=== PATIENT | male | born 1965 | race Caucasian/White ===

== ENCOUNTER → 2018-09-03 | Outpatient (CLI) | payer OTHER ==
--- NOTE | 2018-09-03 09:54 | KCIC ---
EXAM: Bilateral hips and pelvis, 5 views. HISTORY: Pain. COMPARISON: None. FINDINGS: A frontal view the pelvis and frontal and frog-leg views of both hips are obtained. There is no fracture, dislocation or subluxation. There is minimal right and mild left marginal femoral femoral head spurring. There is a corticated ossicle along the superior lateral left acetabulum likely due to a chronic fragmented osteophyte. There may be superimposed small os acetabulum. There is degenerative change at the lumbosacral junction. IMPRESSION: 1. 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 2. No acute osseous finding. Electronically signed by: Anna Brewster MD (09/03/2018 9:51 AM) [id number]
== END | disposition home or self-care (01) ==
LOC: KCIC 08:59
PROVIDERS: ATTEND Nurse Practitioner Family
DX: M17.0 Bilateral primary osteoarthritis of knee (principal); M25.752 Osteophyte, left hip; G89.29 Other chronic pain
CPT/HCPCS: 73521

== ENCOUNTER → 2021-08-14 | Outpatient (CLI) | payer MEDICARE ==
[~2021-08-14] MED LIST: GADOTERATE 5 MMOL/10ML VIAL. IVP ONE; LITH150C PO; LORA2DIS2 IJ; ZOLP5TAB PO
--- NOTE | 2021-08-15 11:20 | KCIC ---
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 TECHNIQUE: Unenhanced T1-weighted sagittal and FLAIR and diffusion-weighted axial images of the brain were obtained. Thin section T1-weighted axial and coronal, T2-weighted coronal and fat saturated T2- weighted coronal images through the orbits were obtained. After the intravenous administration of 20 cc of Clariscan enhanced T1-weighted axial images of the brain were obtained. Additionally enhanced t hin section fat saturated T1-weighted axial and coronal images through the orbits were obtained. FINDINGS: Comparison is made to patient's previous MRI study performed at [facility] in [facility] dated 01/18/2019. The ventricles and sulci are within normal limits in size and configuration. Patchy and several small focal areas of increased signal intensity are seen within the periventricular and subcortical white matter of both cerebral hemispheres on the FLAIR and T2-weighted images consistent with areas of mini mal small vessel ischemic disease. These are unchanged. A enhancing mass is seen centered in the right cavernous sinus. This extends to involve the right orb ital apex. It measures 3.8 x 2.8 x 2.4 cm in AP, transverse and craniocaudal dimensions. It encases t he cavernous right internal carotid artery mildly narrowing it. It extends to involve the right later al aspect of the pituitary gland along with the right suprasellar cistern without impinging upon the optic chiasm. It encases and impinges upon the right optic nerve sheath complex within the orbital ap ex. It is unchanged since the previous examination. An oval-shaped high signal intensity mass is seen within the right orbit superior to the superior rec tus muscle on the T2-weighted images. This generates decreased signal intensity on the T1-weighted im ages. It does not enhance with contrast. It measures 6 mm in transverse diameter. This displaces the right superior rectus muscle inferiorly. It is unchanged from the previous examination. No additional abnormality of either orbit is seen. There is no MRI evidence of acute ischemia/infarction. No extra-axial fluid collection is seen. No ar ea of abnormal parenchymal contrast enhancement is seen. The visualized paranasal sinuses are essentially clear. Normal flow voids are seen within the major v ascular structures surrounding the brain parenchyma. IMPRESSION: Stable MRI appearance of the 3.8 cm mass centered within the right cavernous sinus which extends to involve the right orbital apex as discussed above. No acute parenchymal abnormality is see n. Electronically signed by: Fran Post MD (08/15/2021 11:18 AM) [id number]
== END ==
LOC: KCIC MRI 15:24
PROVIDERS: ATTEND Radiology Radiation Oncology
DX: J34.89 Other specified disorders of nose and nasal sinuses (principal); G93.89 Other specified disorders of brain; D49.6 Neoplasm of unspecified behavior of brain
CPT/HCPCS: 70543; A9575